=== PATIENT | female | born 1980 | race Caucasian/White ===

== ENCOUNTER 2017-07-25 02:35 | Emergency (ER) | payer SELFPAY ==
[~2017-07-25] VITALS: Ht 180.3 cm; Wt 70.5 kg
[2017-07-25] MEDS ORDERED: NORCO 325 MG-51 TAB PO (04:50)
[2017-07-25] MEDS ORDERED: CYCLOBENZAPRINE10 M1 PO (04:50)
[2017-07-25 05:06] VITALS: BP 104/74
== END 2017-07-25 05:06 | disposition home or self-care (01) ==
LOC: ED 02:35
DX: M54.89 Other dorsalgia (principal); D68.2 Hereditary deficiency of other clotting factors; R19.7 Diarrhea, unspecified; R10.32 Left lower quadrant pain
CPT/HCPCS: J1885; J7030